=== PATIENT | female | born 1975 | race Hispanic/Latino ===

== ENCOUNTER 2021-12-26 16:11 | Emergency (ER) | payer SELFPAY ==
[~2021-12-26] VITALS: Ht 160 cm; Wt 81.6 kg
[2021-12-26] MEDS ORDERED: PREDNISONE20 MG PO (17:24)
[2021-12-26] MEDS ORDERED: VENTOLIN HFA18 GM INH (17:24)
[2021-12-26] MEDS ORDERED: AZITHROMYCIN250 MG PO (17:24)
== END 2021-12-26 17:33 | disposition home or self-care (01) ==
LOC: ER 16:18
DX: R05.9 Cough, unspecified (principal); U07.1 COVID-19
CPT/HCPCS: 0223U; 36415; 99283